=== PATIENT | male | born 1975 | race Caucasian/White ===

== ENCOUNTER 2018-10-17 17:55 | Emergency (ER) | payer OTHER ==
--- NOTE | 2018-10-17 17:59 | PDOC ---
Rapid Medical Evaluation Time Seen by Provider: 10/17/18 17:57 Medical Evaluation: Allergies Allergy/AdvReac Type Severity Reaction Status Date / Time No Known Allergies Allergy Verified 12/13/16 19:59 10/17/18 17:57 I have performed a brief in-person evaluation of this patient. The patient presents with a chief complaint of:R facial pain x 4 days. No sig pmhx Pertinent physical exam findings:Unremarkable I have ordered the following:nothing The patient will proceed to the ED for further evaluation Discharge Disposition - Diagnosis Facial pain - Referrals - Patient Instructions - Post Discharge Activity
[2018-10-17 18:01] VITALS: BP 125/84; PULSE 73; TEMP 98.8; BMI 35.5
[2018-10-17 19:13] LABS: BASO % 0.4 % (0-2.0); EOS % 1.4 % (0-4.5); HEMATOCRIT 39.9 % (35.4-49); HEMOGLOBIN 14.5 GM/dL (11.7-16.9); LYMPH % 31.5 % (8-40); MCH 31.2 pg (25.7-33.7); MCHC 36.3 g/dl (32.0-35.9); MEAN CELL VOLUME 85.8 fl (80-96); MEAN PLT VOLUME 9.2 fl (7.5-11.1); MONO % 7.2 % (3.8-10.2); NEUT % 59.5 % (42.8-82.8); PLATELET COUNT 184 K/MM3 (134-434); RBC 4.65 M/mm3 (4.00-5.60); RDW 12.9 % (11.9-15.9); WHITE BLOOD COUNT 5.9 K/mm3 (4.0-10.0)
[2018-10-17 19:32] LABS: INR 0.96 (0.83-1.09); PROTHROMBIN TIME (PATIENT) 11.3 SEC (9.7-13.0)
[2018-10-17 19:39] LABS: ALBUMIN 4.2 g/dl (3.4-5.0); ALK PHOS 107 U/L (45-117); ANION GAP 6 MMOL/L (8-16); BILIRUBIN,TOTAL 0.4 mg/dL (0.2-1); BLOOD UREA NITROGEN 17 mg/dL (7-18); CALCIUM 8.5 mg/dL (8.5-10.1); CHLORIDE 106 mmol/L (98-107); CO2 30 mmol/L (21-32); CREATININE 0.9 mg/dL (0.55-1.3); GLUCOSE,RANDOM 101 mg/dL (74-106); POTASSIUM 4.1 mmol/L (3.5-5.1); SGOT/AST 17 U/L (15-37); SGPT/ALT 29 U/L (13-61); SODIUM 141 mmol/L (136-145); TOT PROT 7.1 g/dl (6.4-8.2)
[2018-10-17] MEDS ORDERED: ACETAMINOPHEN 500 MG TABLET (FP) PO ONE (22:32)
[2018-10-17] MEDS ORDERED: ACETAMINOPHEN 500 MG TABLET (FP) ONE (22:34)
--- NOTE | 2018-10-17 22:34 | PDOC ---
History of Present Illness - General Chief Complaint: Headache Stated Complaint: RIGHT SIDE FACE PAIN Time Seen by Provider: 10/17/18 17:57 - History of Present Illness Initial Comments: 10/17/18 22:31 43-year-old male presents for evaluation of atraumatic onset of neck pain and right-sided neck pain 4 days without systemic symptoms. Past History - Past Medical History Allergies/Adverse Reactions: Allergies Allergy/AdvReac Type Severity Reaction Status Date / Time No Known Allergies Allergy Verified 12/13/16 19:59 Home Medications: Ambulatory Orders NK [No Known Home Medication] 10/17/18 Kidney Stones: Yes - Immunization History Immunization Up to Date: Yes - Suicide/Smoking/Psychosocial Hx Smoking History: Never smoked Have you smoked in the past 12 months: No Information on smoking cessation initiated: No Hx Alcohol Use: No Drug/Substance Use Hx: No Substance Use Type: None Review of Systems - Review of Systems Musculoskeletal: Yes: Neck Pain Neurological: Yes: Headache *Physical Exam - Vital Signs Last Vital Signs Temp Pulse Resp BP Pulse Ox 98.8 F 73 18 125/84 100 10/17/18 17:58 10/17/18 17:58 10/17/18 17:58 10/17/18 17:58 10/17/18 17:58 - Physical Exam Comments: 10/17/18 22:32 HEAD: NC/AT EYES: Conjuntiva clear Ears: Canals and TM's normal NOSE: No d/c THROAT: Moist mucous membrances, oral pharanx clear, uvula midline NECK: There is right-sided neck pain with tenderness CARDIAC: S1 S2 LUNGS: CTA Full and Equal breath sounds ABDOMEN: Soft NT ND MS: Full ROM in all joints without edema NEUROLOGIC: No gross sensory or motor deficits, NVID SKIN: Normal color and temperature no lesions or rashes Moderate Sedation - Procedure Monitoring Vital Signs: Procedure Monitoring Vital Signs Temperature 98.8 F 10/17/18 17:58 Pulse Rate 73 10/17/18 17:58 Respiratory Rate 18 10/17/18 17:58 Blood Pressure 125/84 10/17/18 17:58 O2 Sat by Pulse Oximetry (%) 100 10/17/18 17:58 ED Treatment Course - LABORATORY CBC & Chemistry Diagram: 10/17/18 19:00 10/17/18 18:44 - ADDITIONAL ORDERS Additional order review: Laboratory Results 10/17/18 10/17/18 18:44 18:44 PT with INR 11.30 INR 0.96 Sodium 141 Potassium 4.1 Chloride 106 Carbon Dioxide 30 Anion Gap 6 L BUN 17 Creatinine 0.9 Creat Clearance w eGFR > 60 Random Glucose 101 Calcium 8.5 Total Bilirubin 0.4 AST 17 ALT 29 Alkaline Phosphatase 107 Total Protein 7.1 Albumin 4.2 10/17/18 19:00 RBC 4.65 MCV 85.8 MCHC 36.3 H RDW 12.9 MPV 9.2 Neutrophils % 59.5 Lymphocytes % 31.5 D Monocytes % 7.2 Eosinophils % 1.4 Basophils % 0.4 - RADIOLOGY Radiology Studies Ordered: Category Date Time Status HEAD CT WITH AND W/O CONTRAST [CT] Stat CT Scan 10/17/18 20:03 Completed NECK CTA [CT] Stat CT Scan 10/17/18 19:51 Taken Medical Decision Making - Medical Decision Making 10/17/18 22:32 ESR is normal CTA of the neck and head are normal treat his headache with Tylenol have him follow-up with neurology for further evaluation and treatment *DC/Admit/Observation/Transfer Diagnosis at time of Disposition: Facial pain, Headache - Discharge Dispostion Disposition: HOME Condition at time of disposition: Stable Decision to Admit order: No - Referrals Referrals: Duane Singh DO [Staff Physician] - - Patient Instructions Printed Discharge Instructions: DI for Headache Additional Instructions: Your CAT scan and blood work was normal today please follow-up with neurology for further evaluation and treatment options. He may take Tylenol as directed for pain please follow-up with neurology next 2-3 days. Return to the emergency room should symptoms worsen or go unresolved. - Post Discharge Activity
== END 2018-10-17 22:36 | disposition home or self-care (01) ==
LOC: JERFT 17:55
DX: G50.1 Atypical facial pain (principal); R51 Headache
CPT/HCPCS: 36415; 70470-TC; 70498-TC; 80053; 85025; 85610; 85651; 99282-25

== ENCOUNTER 2021-11-23 14:50 | Emergency (ER) | payer OTHER ==
[2021-11-23 14:53] VITALS: BP 130/78; PULSE 69; TEMP 98.4; BMI 32.3
[2021-11-23] MEDS ORDERED: KETOROLAC TROMETHAMINE 15 MG/ML VIAL IVPUSH ONE (15:22)
[2021-11-23] MEDS ORDERED: KETOROLAC TROMETHAMINE 15 MG/ML VIAL ONE (16:01)
[2021-11-23 16:48] LABS: BASO % 0.2 % (0-2.0); EOS % 0.6 % (0-4.5); HEMATOCRIT 39.7 % (35.4-49); HEMOGLOBIN 13.8 GM/dL (11.7-16.9); MCHC 34.8 g/dl (32.0-35.9); MEAN CELL VOLUME 86.3 fl (80-96); MEAN PLT VOLUME 8.9 fl (7.5-11.1); MONO % 8.6 % (3.8-10.2); NEUT % 64.6 % (42.8-82.8); PLATELET COUNT 173 10^3/uL (134-434); RDW 13.5 % (11.9-15.9)
[2021-11-23 17:17] LABS: CALCIUM 8.6 mg/dL (8.5-10.1)
[2021-11-23 17:18] LABS: ALBUMIN 3.9 g/dl (3.4-5.0); BLOOD UREA NITROGEN 10.5 mg/dL (7-18)
[2021-11-23 17:21] LABS: CREATININE 0.6 mg/dL (0.55-1.3)
[2021-11-23 17:22] LABS: BILIRUBIN,TOTAL 0.4 mg/dL (0.2-1)
[2021-11-23 17:23] LABS: TOT PROT 6.6 g/dl (6.4-8.2)
[2021-11-23] MEDS ORDERED: CLINDAMYCIN 600MG PREMIX IVPB 600 MG/50 ML BAG IVPB ONE ×2 (19:09→19:17)
== END 2021-11-23 20:14 | disposition home or self-care (01) ==
LOC: JERFT 14:50
PROC: 3E033GC Introduction of Other Therapeutic Substance into Peripheral Vein, Percutaneous Approach (ICD-10-PCS; principal; 2021-11-23)
DX: K12.2 Cellulitis and abscess of mouth (principal)
CPT/HCPCS: 36415; 70487-TC; 80053; 85025; 96365; 96375; 99285-25; Q9967

== ENCOUNTER 2024-01-11 17:01 | Emergency (ER) | payer OTHER ==
[2024-01-11 17:58] VITALS: BP 123/84; PULSE 66; RESP 18; TEMP 98; BMI 35.5
[2024-01-11] MEDS ORDERED: LIDOCAINE 4% PATCH TP ONE (19:15)
[2024-01-11] MEDS ORDERED: KETOROLAC TROMETHAMINE 30 MG/1 ML VIAL ONE (19:16)
[2024-01-11] MEDS ORDERED: METHOCARBAMOL 500 MG TABLET ONE (19:16)
[2024-01-11] MEDS ORDERED: ACETAMINOPHEN 500 MG TABLET (FP) ONE (19:16)
[2024-01-11] MEDS: KETOROLAC TROMETHAMINE 30 MG/1 ML VIAL IM ONE (19:22)
[2024-01-11] MEDS: METHOCARBAMOL 750 MG TABLET PO ONE (19:22)
[2024-01-11] MEDS: LIDOCAINE 4% PATCH TP ONE (19:22)
[2024-01-11] MEDS: ACETAMINOPHEN 500 MG TABLET (FP) PO ONE (19:22)
[2024-01-11] MEDS ORDERED: LIDOCAINE PATCH REMOVAL MC SCH (22:00)
== END 2024-01-11 21:49 | disposition home or self-care (01) ==
LOC: JERFT 17:01
PROC: 3E0233Z Introduction of Anti-inflammatory into Muscle, Percutaneous Approach (ICD-10-PCS; principal; 2024-01-11)
DX: M50.90 Cervical disc disorder, unspecified, unspecified cervical region (principal); M25.511 Pain in right shoulder; M25.512 Pain in left shoulder
CPT/HCPCS: 72125-TC; 96372; 99284-25